=== PATIENT | male | born 1940 | race Caucasian/White ===

== ENCOUNTER → 2017-07-25 | Outpatient (CLI) | payer OTHER ==
[~2017-07-25] MED LIST: ATOR10TA PO; CARB25TA3 PO; TADA5TAB11 PO
[2017-07-25 09:17] LABS: Basophils # (auto) 0.1 uL; Basophils % (auto) 0.7 % (0.0-2.0); Eosinophils # (auto) 0.1 uL; Eosinophils % (auto) 1.3 % (0.0-7.0); Hematocrit 37.2 % (41.0-53.0); Hemoglobin 12.7 g/dL (13.5-17.5); Lymphocytes # (auto) 1.9 uL; Mean Corpuscular Hemoglobin 31.7 pg (28.0-32.0); Mean Corpuscular Hgb Conc. 34.1 g/dL (32.0-36.0); Mean Corpuscular Volume 93.1 fL (80.0-100.0); Monocytes # (auto) 0.5 uL; Neutrophils # (auto) 4.8 uL; Platelet Count (auto) 245 10^3/uL (140-450); White Blood Cell 7.3 10^3/uL (4.4-10.8)
[2017-07-25 09:45] LABS: Urine Bacteria FEW /hpf (None Seen); Urine Blood Negative /uL (Negative); Urine Mucus FEW (None Seen); Urine Specific Gravity 1.016 (1.001-1.035); Urine WBC 5 /hpf (0 - 3)
[2017-07-25 09:49] LABS: Albumin 3.9 g/dL (3.4-5.0); BUN/Creatinine Ratio 17.4; Bilirubin, Total 0.9 mg/dL (0.2-1.0); Calcium 8.7 mg/dL (8.5-10.1); Potassium 3.9 mmol/L (3.5-5.1); Total Protein 7.2 g/dL (6.4-8.2)
== END | disposition home or self-care (01) ==
LOC: LAB 08:59
PROVIDERS: ATTEND Family Medicine
DX: I10 Essential (primary) hypertension (principal); E78.4 Other hyperlipidemia
CPT/HCPCS: 36415; 80053; 80061; 81001; 85025

== ENCOUNTER → 2018-06-26 | Outpatient (CLI) | payer OTHER ==
[2018-06-26 08:44] LABS: Basophils # (auto) 0 uL; Basophils % (auto) 0.7 % (0.0-2.0); Eosinophils # (auto) 0.1 uL; Eosinophils % (auto) 1.7 % (0.0-7.0); Hematocrit 39.5 % (41.0-53.0); Hemoglobin 13.2 g/dL (13.5-17.5); Lymphocytes # (auto) 1.9 uL; Mean Corpuscular Hemoglobin 31.2 pg (28.0-32.0); Mean Corpuscular Hgb Conc. 33.5 g/dL (32.0-36.0); Mean Corpuscular Volume 93.2 fL (80.0-100.0); Monocytes # (auto) 0.4 uL; Monocytes % (auto) 7.5 % (0.0-12.0); Neutrophils # (auto) 3.2 uL; Neutrophils % (auto) 56.1 % (37.0-80.0); Nucleated Red Blood Cells % 0.3 %; Platelet Count (auto) 250 10^3/uL (140-450); Red Blood Cells 4.24 10^6/uL (4.5-5.90); Red Cell Distribution Width 13.8 % (11.8-14.3); White Blood Cell 5.7 10^3/uL (4.4-10.8)
[2018-06-26 08:47] LABS: Urine Bacteria MANY /hpf (None Seen); Urine Blood Negative /uL (Negative); Urine Hyaline Cast FEW /lpf (0 - 2); Urine Mucus FEW (None Seen); Urine Specific Gravity 1.016 (1.001-1.035); Urine WBC 20 /hpf (0 - 3)
[2018-06-30 09:59] LABS: Calcium 8.5 mg/dL (8.5-10.1); Potassium 5.1 mmol/L (3.5-5.1)
[2018-06-30 10:01] LABS: BUN/Creatinine Ratio 17.5
[2018-06-30 10:09] LABS: Total Protein 7.4 g/dL (6.4-8.2)
== END | disposition home or self-care (01) ==
LOC: LAB 08:13
PROVIDERS: ATTEND Family Medicine
DX: E78.49 Other hyperlipidemia (principal); G20 Parkinson's disease; Z79.899 Other long term (current) drug therapy
CPT/HCPCS: 36415; 80053; 80061; 81001; 82306; 84443; 85025

== ENCOUNTER → 2019-06-25 | Outpatient (CLI) | payer OTHER ==
[2019-06-25 11:05] LABS: Basophils # (auto) 0 uL; Eosinophils # (auto) 0.1 uL; Eosinophils % (auto) 1.6 % (0.0-7.0); Hematocrit 36.6 % (41.0-53.0); Hemoglobin 12.4 g/dL (13.5-17.5); Lymphocytes # (auto) 1.5 uL; Lymphocytes % (auto) 29.6 % (10.0-50.0); Mean Corpuscular Hemoglobin 31.6 pg (28.0-32.0); Mean Corpuscular Hgb Conc. 33.9 g/dL (32.0-36.0); Monocytes # (auto) 0.3 uL; Monocytes % (auto) 6.5 % (0.0-12.0); Neutrophils # (auto) 3.1 uL; Neutrophils % (auto) 61.3 % (37.0-80.0); Nucleated Red Blood Cells % 0.1 %; Platelet Count (auto) 226 10^3/uL (140-450); Red Blood Cells 3.94 10^6/uL (4.5-5.90); Red Cell Distribution Width 13.9 % (11.8-14.3); White Blood Cell 5.1 10^3/uL (4.4-10.8)
[2019-06-25 11:29] LABS: Urine Bacteria NONE SEEN /hpf (None Seen); Urine Blood Negative /uL (Negative); Urine Specific Gravity 1.019 (1.001-1.035); Urine WBC 80 /hpf (0 - 3)
[2019-06-25 11:31] LABS: Albumin 3.6 g/dL (3.4-5.0); Calcium 8.5 mg/dL (8.5-10.1); Potassium 3.9 mmol/L (3.5-5.1)
[2019-06-25 11:37] LABS: BUN/Creatinine Ratio 13.7; Bilirubin, Total 0.6 mg/dL (0.2-1.0); Total Protein 6.7 g/dL (6.4-8.2)
== END | disposition home or self-care (01) ==
LOC: LAB 10:32
PROVIDERS: ATTEND Family Medicine
DX: E55.9 Vitamin D deficiency, unspecified (principal); E78.49 Other hyperlipidemia; G20 Parkinson's disease; N40.1 Benign prostatic hyperplasia with lower urinary tract symptoms; Z72.0 Tobacco use
CPT/HCPCS: 36415; 80053; 80061; 81001; 82306; 85025

== ENCOUNTER → 2020-02-15 | Emergency (ER) | payer OTHER ==
[~2020-02-15] VITALS: Ht 167.6 cm; Wt 68.7 kg
[~2020-02-15] MED LIST changes: +CARBIDOPA W LEVODOPA 25/100mg TABLET PO ONE; +KETOROLAC TROMETH 30 MG/ML 1ML VIAL IV ONE; +MORPHINE SULF INJ 2 MG/ML SYRINGE 1ML IV ONE; +ONDANSETRON HCL 4 MG/2 ML VIAL IV ONE; +PANTOPRAZOLE 40 MG/10 ML VIAL INJ IV ONE; +SODIUM CHLORIDE 0.9% 1,000 ML IV ONE; +TAMSULOSIN HYDROCHLORIDE 0.4 MG CAP PO ONE
[2020-02-15 07:29] LABS: Basophils # (auto) 0.1 10 ^3/uL (0-0.2); Basophils % (auto) 1.3 % (0.0-2.0); Eosinophils # (auto) 0.2 10 ^3/uL (0-0.8); Eosinophils % (auto) 2.4 % (0.0-7.0); Hematocrit 38.5 % (41.0-53.0); Hemoglobin 12.8 g/dL (13.5-17.5); Lymphocytes # (auto) 1.9 10 ^3/uL (0.4-5.4); Lymphocytes % (auto) 28.3 % (10.0-50.0); Mean Corpuscular Hemoglobin 31.1 pg (28.0-32.0); Mean Corpuscular Hgb Conc. 33.3 g/dL (32.0-36.0); Mean Corpuscular Volume 93.4 fL (80.0-100.0); Monocytes # (auto) 0.6 10 ^3/uL (0-1.3); Monocytes % (auto) 8.5 % (0.0-12.0); Neutrophils # (auto) 3.9 10 ^3/uL (1.6-8.6); Neutrophils % (auto) 59.5 % (37.0-80.0); Platelet Count (auto) 276 10^3/uL (140-450); Red Blood Cells 4.12 10^6/uL (4.5-5.90); Red Cell Distribution Width 14.3 % (11.8-14.3); White Blood Cell 6.6 10^3/uL (4.4-10.8)
[2020-02-15 07:32] VITALS: BP 134/65
[2020-02-15 07:50] LABS: Alanine Aminotransferase 16 U/L (16-61); Albumin 3.6 g/dL (3.4-5.0); Anion Gap 5 (5-15); Aspartate Aminotransferase 17 U/L (15-37); BUN/Creatinine Ratio 19.5; Blood Urea Nitrogen 24 mg/dL (7-18); Calcium 8.5 mg/dL (8.5-10.1); Carbon Dioxide 23 mmol/L (21-32); Chloride 112 mmol/L (98-107); GFR African American 73 mL/min; GFR Non-African American 60 mL/min; Glucose 114 mg/dL (74-106); Lipase 115 U/L (73-393); Potassium 3.8 mmol/L (3.5-5.1); Sodium 140 mmol/L (136-145)
[2020-02-15 07:55] LABS: Alkaline Phosphatase 73 U/L (45-117); Bilirubin, Total 0.6 mg/dL (0.2-1.0); Total Protein 7.1 g/dL (6.4-8.2)
== END | disposition home or self-care (01) ==
LOC: ER 06:50
DX: N20.0 Calculus of kidney (principal); E86.0 Dehydration; K59.00 Constipation, unspecified; K44.9 Diaphragmatic hernia without obstruction or gangrene; K57.90 Diverticulosis of intestine, part unspecified, without perforation or abscess without bleeding; N40.0 Benign prostatic hyperplasia without lower urinary tract symptoms; F17.210 Nicotine dependence, cigarettes, uncomplicated; E78.5 Hyperlipidemia, unspecified; Z88.0 Allergy status to penicillin; Z88.5 Allergy status to narcotic agent; Z79.899 Other long term (current) drug therapy
CPT/HCPCS: 36415; 71045; 74176; 80053; 83690; 84154; 84484; 85025; 93005; 96361; 96374; 96375; 99285; C9113; J1885

== ENCOUNTER → 2020-04-12 | Outpatient (CLI) | payer OTHER ==
[~2020-04-12] MED LIST changes: -CARBIDOPA W LEVODOPA 25/100mg TABLET PO ONE; +FURO20TA3 PO; -KETOROLAC TROMETH 30 MG/ML 1ML VIAL IV ONE; -MORPHINE SULF INJ 2 MG/ML SYRINGE 1ML IV ONE; -ONDANSETRON HCL 4 MG/2 ML VIAL IV ONE; -PANTOPRAZOLE 40 MG/10 ML VIAL INJ IV ONE; +POTA1TAB61 PO; +RASA1TAB PO; -SODIUM CHLORIDE 0.9% 1,000 ML IV ONE; -TAMSULOSIN HYDROCHLORIDE 0.4 MG CAP PO ONE
== END | disposition home or self-care (01) ==
LOC: XYW 10:53
PROVIDERS: ATTEND Internal Medicine
DX: I08.3 Combined rheumatic disorders of mitral, aortic and tricuspid valves (principal); E78.5 Hyperlipidemia, unspecified
CPT/HCPCS: 93306

== ENCOUNTER → 2020-05-16 | Outpatient (CLI) | payer OTHER ==
[~2020-05-16] VITALS: Ht 167.6 cm; Wt 68.0 kg
[~2020-05-16] MED LIST changes: +ADENOSINE 57 MG in GIVE UN-DILUTED 0 ML IV STA; -FURO20TA3 PO; -POTA1TAB61 PO; -RASA1TAB PO
[2020-05-16 09:32] VITALS: BP 105/58
== END | disposition home or self-care (01) ==
LOC: XY 07:50
PROVIDERS: ATTEND Internal Medicine
DX: Z01.810 Encounter for preprocedural cardiovascular examination (principal)
CPT/HCPCS: 78452; 93017; A9500; J0153

== ENCOUNTER → 2020-06-08 | Outpatient (CLI) | payer OTHER ==
[~2020-06-08] MED LIST changes: -ADENOSINE 57 MG in GIVE UN-DILUTED 0 ML IV STA; +FURO20TA3 PO; +POTA1TAB61 PO; +RASA1TAB PO
[2020-06-08 09:52] LABS: Basophils # (auto) 0 10 ^3/uL (0-0.2); Basophils % (auto) 0.7 % (0.0-2.0); Eosinophils # (auto) 0.1 10 ^3/uL (0-0.8); Eosinophils % (auto) 1.6 % (0.0-7.0); Hematocrit 37.7 % (41.0-53.0); Hemoglobin 12.4 g/dL (13.5-17.5); Lymphocytes # (auto) 1.6 10 ^3/uL (0.4-5.4); Lymphocytes % (auto) 24.6 % (10.0-50.0); Mean Corpuscular Hemoglobin 30.6 pg (28.0-32.0); Mean Corpuscular Hgb Conc. 32.8 g/dL (32.0-36.0); Mean Corpuscular Volume 93.4 fL (80.0-100.0); Monocytes # (auto) 0.5 10 ^3/uL (0-1.3); Monocytes % (auto) 8.1 % (0.0-12.0); Neutrophils # (auto) 4.2 10 ^3/uL (1.6-8.6); Platelet Count (auto) 252 10^3/uL (140-450); Red Blood Cells 4.04 10^6/uL (4.5-5.90); Red Cell Distribution Width 14.2 % (11.8-14.3); White Blood Cell 6.5 10^3/uL (4.4-10.8)
[2020-06-08 10:24] LABS: INR 0.99 (0.9-1.15); Partial Thromboplastin Time 26.8 sec (23.0-31.2)
[2020-06-08 11:08] LABS: Albumin 3.9 g/dL (3.4-5.0); Calcium 9.1 mg/dL (8.5-10.1)
[2020-06-08 11:10] LABS: BUN/Creatinine Ratio 25.4
[2020-06-08 11:14] LABS: Bilirubin, Total 0.7 mg/dL (0.2-1.0)
== END | disposition home or self-care (01) ==
LOC: LAB 09:39
PROVIDERS: ATTEND Internal Medicine
DX: Z01.812 Encounter for preprocedural laboratory examination (principal); I10 Essential (primary) hypertension; D64.9 Anemia, unspecified; R79.1 Abnormal coagulation profile
CPT/HCPCS: 36415; 80053; 85025; 85610; 85730

== ENCOUNTER 2020-06-14 06:52 | Inpatient (IN) | payer OTHER ==
[~2020-06-14] VITALS: Ht 167.6 cm; Wt 70.9 kg
[~2020-06-14 06:52] MED LIST changes: -FURO20TA3 PO; -POTA1TAB61 PO; -TADA5TAB11 PO
[2020-06-14] MEDS ORDERED: VANCOMYCIN 1GM/250ML 250 ML IV ONE (09:15)
[2020-06-14] MEDS ORDERED: LIDOCAINE 2%HCL (LOCAL ANESTH.) INJ 20ML MDV ONE (09:24)
[2020-06-14] MEDS ORDERED: VANCOMYCIN HCL 1000 MG VL ONE (10:17)
[2020-06-14] MEDS ORDERED: MIDAZOLAM HCL 1MG/1ML-2 ML VIAL ONE (10:17)
[2020-06-14] MEDS ORDERED: fentaNYL CITRATE 100 MCG/2 ML VL ONE (10:17)
[2020-06-14] MEDS ORDERED: HYDROcodone-ACET 5/325MG TAB PO PRN (12:00)
[2020-06-14] MEDS ORDERED: MORPHINE SULF INJ 2 MG/ML SYRINGE 1ML IV PRN (12:00)
[2020-06-14] MEDS ORDERED: NITROGLYCERIN 0.4 MG SL TAB SL PRN (12:00)
[2020-06-14] MEDS ORDERED: KETOROLAC TROMETH 30 MG/ML 1ML VIAL IV PRN (13:00)
--- NOTE | 2020-06-14 13:00 | NUR ---
Telemetry admit from [employer] [employer] FREDI NAVARRO admitted to Telemetry unit after SBAR received. Patient oriented to Kylie Karimi RN primary RN, unit, room, bed, and unit policies regarding patient care and visiting hours. Patient now on continuous telemetry monitoring, tele box #[id number] and telemetry reading on arrival to unit is sr. Encouraged to call if they need something. All questions and concerns addressed, patient verbalized understanding. Noted left arm to be immobilized with sling. S/p pacemaker insertion with Dr. Grant. Ice pack placed on left upper chest to decrease inflammation. Patient is aware of restrictions. Bed is low, locked with 2x side rails up. Call light is within reach. Will continue to monitor Q1hr and PRN.
[2020-06-14 13:51] VITALS: BP 146/76
[2020-06-14] MEDS: ACETAMINOPHEN 325 MG TAB PO PRN ×2 (15:55→23:03)
[2020-06-14] MEDS: CARBIDOPA W LEVODOPA 25/100mg TABLET PO SCH ×3 (15:55→21:21)
[2020-06-14 16:24] VITALS: BP 128/69
--- NOTE | 2020-06-14 17:03 | NUR ---
Code status Noted copy of POLST form in hard chart. Discussed code status with patient and patient stated that he would like to remain DNR (see POLST form in hard chart). Dr. Grant aware of patient's POLST form. New orders received to change code status. DNR form in chart for MD signature. Will continue to monitor Q1hr and PRN.
--- NOTE | 2020-06-14 19:05 | NUR ---
OPENING SHIFT NOTE: Assumed care of patient. Patient awake, alert and oriented x 4. No s/s of distress and patient denies pain. Bed in lowest locked position with two side rails raised and call [place] within reach. Instructed on POC and encouraged to call for assistance, all questions and concerns addressed, patient verbalizes understanding. Will continue to monitor Q1 hr and PRN.
[2020-06-14 20:00] VITALS: BP 130/76
[2020-06-14 22:00] VITALS: BP 130/76
[2020-06-14] MEDS ORDERED: ATORVASTATIN 20 MG TAB PO SCH (22:00)
[2020-06-15 05:00] VITALS: BP 125/70
[2020-06-15] MEDS: CARBIDOPA W LEVODOPA 25/100mg TABLET PO SCH ×2 (06:24→13:09)
[2020-06-15 09:00] VITALS: BP 138/74
[2020-06-15] MEDS ORDERED: FURO20TA3 PO (12:02)
[2020-06-15] MEDS ORDERED: POTA1TAB61 PO (12:02)
[2020-06-15 13:00] VITALS: BP 148/76
[2020-06-15] MEDS: ACETAMINOPHEN 325 MG TAB PO PRN (13:09)
== END 2020-06-15 13:50 | disposition home or self-care (01) | DRG 242 ==
LOC: CATH 06:52 → TELE-CENTR 06:53
PROVIDERS: ADMIT Internal Medicine; ATTEND Internal Medicine
PROC: 0JH606Z Insertion of Pacemaker, Dual Chamber into Chest Subcutaneous Tissue and Fascia, Open Approach (ICD-10-PCS; principal; 2020-06-14)
PROC: 02HK3JZ Insertion of Pacemaker Lead into Right Ventricle, Percutaneous Approach (ICD-10-PCS; 2020-06-14)
PROC: 02H63JZ Insertion of Pacemaker Lead into Right Atrium, Percutaneous Approach (ICD-10-PCS; 2020-06-14)
DX: I49.5 Sick sinus syndrome (principal); I50.33 Acute on chronic diastolic (congestive) heart failure; F17.210 Nicotine dependence, cigarettes, uncomplicated; Z20.828 Contact with and (suspected) exposure to other viral communicable diseases; G20 Parkinson's disease; Z82.0 Family history of epilepsy and other diseases of the nervous system; Z88.5 Allergy status to narcotic agent; Z88.0 Allergy status to penicillin
CPT/HCPCS: 33208; 71045; 93005; 99152; 99153; C1785; G0378; J2250

== ENCOUNTER → 2020-10-23 | Outpatient (CLI) | payer OTHER ==
[~2020-10-23] MED LIST changes: +FURO20TA3 PO; +POTA1TAB61 PO
[2020-10-23 12:30] LABS: Potassium 4.1 mmol/L (3.5-5.1)
[2020-10-23 12:39] LABS: Calcium 8.7 mg/dL (8.5-10.1)
== END | disposition home or self-care (01) ==
LOC: LAB 11:15
PROVIDERS: ATTEND Internal Medicine
DX: C61 Malignant neoplasm of prostate (principal)
CPT/HCPCS: 36415; 80048

== ENCOUNTER 2020-11-29 13:45 | Emergency (ER) | payer OTHER ==
[~2020-11-29] VITALS: Ht 167.6 cm; Wt 68.5 kg
[2020-11-29 13:47] VITALS: BP 117/63
[2020-11-29 14:49] LABS: Basophils # (auto) 0 10 ^3/uL (0-0.2); Basophils % (auto) 0.6 % (0.0-2.0); Eosinophils # (auto) 0.2 10 ^3/uL (0-0.8); Eosinophils % (auto) 2.3 % (0.0-7.0); Hematocrit 34.7 % (41.0-53.0); Hemoglobin 12.1 g/dL (13.5-17.5); Lymphocytes % (auto) 28.4 % (10.0-50.0); Mean Corpuscular Hemoglobin 31.6 pg (28.0-32.0); Mean Corpuscular Hgb Conc. 34.7 g/dL (32.0-36.0); Mean Corpuscular Volume 90.9 fL (80.0-100.0); Monocytes # (auto) 0.6 10 ^3/uL (0-1.3); Monocytes % (auto) 9.1 % (0.0-12.0); Neutrophils # (auto) 4.2 10 ^3/uL (1.6-8.6); Neutrophils % (auto) 59.6 % (37.0-80.0); Platelet Count (auto) 193 10^3/uL (140-450); Red Blood Cells 3.82 10^6/uL (4.5-5.90); Red Cell Distribution Width 13.6 % (11.8-14.3)
[2020-11-29 14:57] LABS: Albumin 3.8 g/dL (3.4-5.0); Calcium 8.7 mg/dL (8.5-10.1); Potassium 3.7 mmol/L (3.5-5.1)
[2020-11-29 15:00] LABS: BUN/Creatinine Ratio 19.4; Bilirubin, Total 0.6 mg/dL (0.2-1.0)
== END 2020-11-29 16:03 | disposition home or self-care (01) ==
LOC: ER 13:45
DX: S09.93XA Unspecified injury of face, initial encounter (principal); S00.33XA Contusion of nose, initial encounter; S00.31XA Abrasion of nose, initial encounter; F17.210 Nicotine dependence, cigarettes, uncomplicated; E78.5 Hyperlipidemia, unspecified; Z79.899 Other long term (current) drug therapy; W19.XXXA Unspecified fall, initial encounter; Y93.89 Activity, other specified; Y92.89 Other specified places as the place of occurrence of the external cause; Y99.8 Other external cause status
CPT/HCPCS: 36415; 70450; 70486; 71046; 72125; 80053; 85025

== ENCOUNTER 2021-03-27 10:04 | Inpatient (IN) | payer OTHER ==
[~2021-03-27] VITALS: Ht 167.6 cm; Wt 72.9 kg
[~2021-03-27 10:04] MED LIST changes: +BICA50TA13 PO; +CARB-80 PO; -CARB25TA3 PO; +CHOL20007; +ENTA200T4 OR; +FERR27TA2 PO
[2021-03-27] MEDS ORDERED: PANTOPRAZOLE 40 MG/10 ML VIAL INJ IV ONE (10:30)
[2021-03-27] MEDS ORDERED: LORazepam 2MG/ML-1ML VIAL IV ONE (10:30)
[2021-03-27 10:50] LABS: Basophils # (auto) 0 10 ^3/uL (0-0.2); Basophils % (auto) 0.8 % (0.0-2.0); Eosinophils # (auto) 0.1 10 ^3/uL (0-0.8); Eosinophils % (auto) 2.3 % (0.0-7.0); Hematocrit 26.6 % (41.0-53.0); Hemoglobin 9.6 g/dL (13.5-17.5); Lymphocytes # (auto) 0.7 10 ^3/uL (0.4-5.4); Lymphocytes % (auto) 11.5 % (10.0-50.0); Mean Corpuscular Hemoglobin 33.2 pg (28.0-32.0); Mean Corpuscular Volume 92.4 fL (80.0-100.0); Monocytes # (auto) 0.7 10 ^3/uL (0-1.3); Monocytes % (auto) 11.4 % (0.0-12.0); Neutrophils # (auto) 4.5 10 ^3/uL (1.6-8.6); Platelet Count (auto) 222 10^3/uL (140-450); Red Blood Cells 2.88 10^6/uL (4.5-5.90); Red Cell Distribution Width 13.9 % (11.8-14.3); White Blood Cell 6.1 10^3/uL (4.4-10.8)
[2021-03-27 11:00] LABS: Albumin 3.4 g/dL (3.4-5.0); Anion Gap 7 (5-15); Blood Urea Nitrogen 21 mg/dL (7-18); Calcium 8.7 mg/dL (8.5-10.1); Carbon Dioxide 23 mmol/L (21-32); Chloride 109 mmol/L (98-107); Glucose 103 mg/dL (74-106); Potassium 3.6 mmol/L (3.5-5.1); Sodium 139 mmol/L (136-145)
[2021-03-27 11:09] LABS: Alanine Aminotransferase 9 U/L (16-61); Alkaline Phosphatase 70 U/L (45-117); Aspartate Aminotransferase 18 U/L (15-37); BUN/Creatinine Ratio 13.4; Bilirubin, Total 1.2 mg/dL (0.2-1.0); GFR African American 55 mL/min; GFR Non-African American 46 mL/min; Total Protein 6.5 g/dL (6.4-8.2)
[2021-03-27] MEDS ORDERED: MORPHINE SULF INJ 2 MG/ML SYRINGE 1ML IV PRN (12:30)
[2021-03-27] MEDS ORDERED: NITROGLYCERIN 0.4 MG SL TAB SL PRN (12:30)
[2021-03-27] MEDS: SODIUM CHLORIDE 0.9% 1,000 ML IV SCH (13:02)
[2021-03-27 13:40] LABS: Urine Bacteria FEW /hpf (None Seen); Urine Blood 2+ /uL (Negative); Urine Specific Gravity 1.008 (1.001-1.035); Urine WBC 124 /hpf (0 - 3)
[2021-03-27] MEDS: SUCRALFATE 1 GM/10 ML ORAL SUSP PO SCH ×2 (17:11→21:03)
[2021-03-27] MEDS ORDERED: GOLYTELY 4L KIT PO ONE (17:30)
[2021-03-27 18:00] VITALS: BP 117/57
[2021-03-27] MEDS: ENTACAPONE 200 MG PO SCH ×2 (19:00→21:04)
[2021-03-27] MEDS: CARBIDOPA W LEVODOPA 25/100mg TABLET PO SCH ×2 (19:00→21:04)
[2021-03-27 19:28] LABS: INR 1.03 (0.9-1.15)
[2021-03-27] MEDS: PANTOPRAZOLE 40 MG TAB PO SCH (21:03)
[2021-03-27] MEDS: ATORVASTATIN 20 MG TAB PO SCH (21:03)
[2021-03-27 22:00] VITALS: BP 104/50
[2021-03-28] MEDS: SODIUM CHLORIDE 0.9% 1,000 ML IV SCH ×3 (01:56→17:18)
[2021-03-28 05:00] VITALS: BP 128/64
[2021-03-28] MEDS: ENTACAPONE 200 MG PO SCH ×4 (05:23→21:26)
[2021-03-28] MEDS: CARBIDOPA W LEVODOPA 25/100mg TABLET PO SCH ×4 (05:23→21:27)
[2021-03-28] MEDS: SUCRALFATE 1 GM/10 ML ORAL SUSP PO SCH ×4 (05:23→21:26)
[2021-03-28 06:34] LABS: Basophils # (auto) 0.1 10 ^3/uL (0-0.2); Eosinophils # (auto) 0.2 10 ^3/uL (0-0.8); Eosinophils % (auto) 3.7 % (0.0-7.0); Hematocrit 29.5 % (41.0-53.0); Hemoglobin 10.4 g/dL (13.5-17.5); Lymphocytes # (auto) 0.8 10 ^3/uL (0.4-5.4); Lymphocytes % (auto) 14.8 % (10.0-50.0); Mean Corpuscular Hemoglobin 32.9 pg (28.0-32.0); Mean Corpuscular Hgb Conc. 35.4 g/dL (32.0-36.0); Monocytes # (auto) 0.5 10 ^3/uL (0-1.3); Monocytes % (auto) 10.4 % (0.0-12.0); Neutrophils # (auto) 3.6 10 ^3/uL (1.6-8.6); Neutrophils % (auto) 70.1 % (37.0-80.0); Nucleated Red Blood Cells % 0.1 %; Platelet Count (auto) 233 10^3/uL (140-450); Red Blood Cells 3.17 10^6/uL (4.5-5.90); Red Cell Distribution Width 13.6 % (11.8-14.3); White Blood Cell 5.2 10^3/uL (4.4-10.8)
[2021-03-28 06:53] LABS: Albumin 3.3 g/dL (3.4-5.0); Calcium 8.5 mg/dL (8.5-10.1); Potassium 3.7 mmol/L (3.5-5.1)
[2021-03-28 06:57] LABS: BUN/Creatinine Ratio 13.4; Total Protein 6.5 g/dL (6.4-8.2)
[2021-03-28] MEDS ORDERED: diphenhdrAMINE HCL 50 MG/1 ML VL ONE ×2 (07:53→07:57)
[2021-03-28] MEDS ORDERED: LIDOCAINE VISCOUS 2% 15ML UD ONE (07:53)
[2021-03-28] MEDS ORDERED: SODIUM CHLORIDE LOCK 10 ML ONE (07:53)
[2021-03-28 08:30] VITALS: BP 120/76
[2021-03-28] MEDS: POTASSIUM CHL 10 Meq TABLET PO SCH (09:57)
[2021-03-28] MEDS: PANTOPRAZOLE 40 MG TAB PO SCH ×2 (09:58→21:26)
[2021-03-28] MEDS: FLORASTOR (S. BOULARDII) 250 MG CAP PO SCH (09:58)
[2021-03-28] MEDS: CHOLECALCIFEROL (VITD3) 1,000UNIT=25mCg TAB PO SCH (09:58)
[2021-03-28] MEDS ORDERED: PANTOPRAZOLE 40 MG TAB PO SCH (10:00)
[2021-03-28] MEDS ORDERED: Bicalutamide 50 MG TAB PO SCH (10:00)
[2021-03-28] MEDS ORDERED: PATIENTS OWN MEDICATION (Atorvastatin Calcium (Lipitor) 1 TAB) PO SCH (10:00)
[2021-03-28] MEDS ORDERED: PATIENTS OWN MEDICATION (Cholecalciferol (Vitamin D3) 1,000 UNIT) SCH (10:00)
[2021-03-28] MEDS ORDERED: PATIENTS OWN MEDICATION (Potassium Chloride (Klor-Con M10) 1 TAB) PO SCH (10:00)
[2021-03-28] MEDS ORDERED: levoFLOXacin 500MG 100 ML IV ONE (10:30)
[2021-03-28 13:00] VITALS: BP 133/74
[2021-03-28] MEDS: FERROUS GLUCONATE PO SCH (14:24)
[2021-03-28 17:15] VITALS: BP 136/70
[2021-03-28] MEDS: BICALUTAMIDE 50 MG TAB PO SCH (18:24)
[2021-03-28] MEDS: ATORVASTATIN 20 MG TAB PO SCH (21:26)
[2021-03-28 21:47] VITALS: BP 106/63
[2021-03-29 05:00] VITALS: BP 152/69
[2021-03-29] MEDS: ENTACAPONE 200 MG PO SCH ×4 (05:44→22:00)
[2021-03-29] MEDS: CARBIDOPA W LEVODOPA 25/100mg TABLET PO SCH ×4 (05:44→22:00)
[2021-03-29] MEDS: SUCRALFATE 1 GM/10 ML ORAL SUSP PO SCH ×4 (05:45→22:00)
[2021-03-29] MEDS ORDERED: MIDAZOLAM HCL 5 MG/ML-1ML VIAL ONE (08:44)
[2021-03-29] MEDS ORDERED: diphenhdrAMINE HCL 50 MG/1 ML VL ONE (08:44)
[2021-03-29] MEDS ORDERED: LIDOCAINE VISCOUS 2% 15ML UD ONE (08:44)
[2021-03-29 09:00] VITALS: BP 128/77
[2021-03-29] MEDS: fentaNYL CITRATE 100 MCG/2 ML VL ONE ×2 (09:33→09:40)
[2021-03-29] MEDS: BICALUTAMIDE 50 MG TAB PO SCH (10:00)
[2021-03-29] MEDS ORDERED: GOLYTELY 4L KIT PO ONE (10:00)
[2021-03-29] MEDS: FERROUS GLUCONATE PO SCH (10:00)
[2021-03-29] MEDS: levoFLOXacin 250MG 50 ML IV SCH (10:00)
[2021-03-29] MEDS: POTASSIUM CHL 10 Meq TABLET PO SCH (10:00)
[2021-03-29] MEDS: CHOLECALCIFEROL (VITD3) 1,000UNIT=25mCg TAB PO SCH (10:00)
[2021-03-29] MEDS ORDERED: levoFLOXacin 500MG 100 ML IV SCH (10:00)
[2021-03-29] MEDS: PANTOPRAZOLE 40 MG TAB PO SCH ×2 (10:00→22:00)
[2021-03-29] MEDS: FLORASTOR (S. BOULARDII) 250 MG CAP PO SCH (10:00)
[2021-03-29 13:00] VITALS: BP 156/82
[2021-03-29] MEDS: SODIUM CHLORIDE 0.9% 1,000 ML IV SCH (17:23)
[2021-03-29 17:35] VITALS: BP 147/69
[2021-03-29 22:00] VITALS: BP 156/60
[2021-03-29] MEDS: ATORVASTATIN 20 MG TAB PO SCH (22:00)
[2021-03-30 05:00] VITALS: BP 137/50
[2021-03-30] MEDS: ENTACAPONE 200 MG PO SCH (06:00)
[2021-03-30] MEDS: CARBIDOPA W LEVODOPA 25/100mg TABLET PO SCH ×2 (06:00→12:00)
[2021-03-30] MEDS: SUCRALFATE 1 GM/10 ML ORAL SUSP PO SCH ×2 (07:00→11:30)
[2021-03-30] MEDS: SODIUM CHLORIDE 0.9% 1,000 ML IV SCH (07:10)
[2021-03-30] MEDS ORDERED: EPINEPHrine HCL 1 MG/10 ML SYRG ONE (08:38)
[2021-03-30] MEDS ORDERED: fentaNYL CITRATE 100 MCG/2 ML VL ONE (08:38)
[2021-03-30] MEDS ORDERED: MIDAZOLAM HCL 5 MG/ML-1ML VIAL ONE (08:38)
[2021-03-30] MEDS ORDERED: diphenhdrAMINE HCL 50 MG/1 ML VL ONE (08:38)
[2021-03-30 09:00] VITALS: BP 144/67
[2021-03-30] MEDS: MIDAZOLAM HCL 5 MG/ML-1ML VIAL ONE ×3 (09:19→09:29)
[2021-03-30] MEDS: fentaNYL CITRATE 100 MCG/2 ML VL ONE ×3 (09:19→09:29)
[2021-03-30] MEDS: CHOLECALCIFEROL (VITD3) 1,000UNIT=25mCg TAB PO SCH (10:00)
[2021-03-30] MEDS: BICALUTAMIDE 50 MG TAB PO SCH (10:00)
[2021-03-30] MEDS: PANTOPRAZOLE 40 MG TAB PO SCH (10:00)
[2021-03-30] MEDS: FLORASTOR (S. BOULARDII) 250 MG CAP PO SCH (10:00)
[2021-03-30] MEDS: POTASSIUM CHL 10 Meq TABLET PO SCH (10:00)
[2021-03-30] MEDS: FERROUS GLUCONATE PO SCH (10:00)
[2021-03-30] MEDS: levoFLOXacin 250MG 50 ML IV SCH (11:00)
[2021-03-30 12:23] LABS: Basophils # (auto) 0.1 10 ^3/uL (0-0.2); Eosinophils # (auto) 0.1 10 ^3/uL (0-0.8); Hematocrit 32.5 % (41.0-53.0); Hemoglobin 11.4 g/dL (13.5-17.5); Lymphocytes # (auto) 1.1 10 ^3/uL (0.4-5.4); Lymphocytes % (auto) 21.4 % (10.0-50.0); Mean Corpuscular Hemoglobin 32.3 pg (28.0-32.0); Mean Corpuscular Hgb Conc. 35.1 g/dL (32.0-36.0); Mean Corpuscular Volume 92.1 fL (80.0-100.0); Monocytes # (auto) 0.4 10 ^3/uL (0-1.3); Monocytes % (auto) 8.5 % (0.0-12.0); Neutrophils # (auto) 3.5 10 ^3/uL (1.6-8.6); Neutrophils % (auto) 67.1 % (37.0-80.0); Nucleated Red Blood Cells % 0.1 %; Platelet Count (auto) 269 10^3/uL (140-450); Red Blood Cells 3.53 10^6/uL (4.5-5.90); Red Cell Distribution Width 13.7 % (11.8-14.3); White Blood Cell 5.2 10^3/uL (4.4-10.8)
[2021-03-30 12:50] VITALS: BP 145/71
[2021-03-30 14:03] VITALS: BP 145/71
[2021-03-30 16:40] VITALS: BP 105/58
== END 2021-03-30 16:45 | disposition home or self-care (01) | DRG 377 ==
LOC: ER 10:04 → OVERFLOW 12:30 → WEST WING 17:46
PROVIDERS: ADMIT Nurse Practitioner Acute Care; ATTEND Family Medicine
PROC: 0DJ08ZZ Inspection of Upper Intestinal Tract, Via Natural or Artificial Opening Endoscopic (ICD-10-PCS; 2021-03-29)
PROC: 0DJD8ZZ Inspection of Lower Intestinal Tract, Via Natural or Artificial Opening Endoscopic (ICD-10-PCS; 2021-03-29 09:20)
PROC: 0DJD8ZZ Inspection of Lower Intestinal Tract, Via Natural or Artificial Opening Endoscopic (ICD-10-PCS; principal; 2021-03-30 09:15)
DX: K29.71 Gastritis, unspecified, with bleeding (principal); N17.0 Acute kidney failure with tubular necrosis; N39.0 Urinary tract infection, site not specified; K64.8 Other hemorrhoids; K57.91 Diverticulosis of intestine, part unspecified, without perforation or abscess with bleeding; R19.7 Diarrhea, unspecified; G20 Parkinson's disease; K44.9 Diaphragmatic hernia without obstruction or gangrene; D50.0 Iron deficiency anemia secondary to blood loss (chronic); E78.5 Hyperlipidemia, unspecified; Z20.822 Contact with and (suspected) exposure to COVID-19; E78.00 Pure hypercholesterolemia, unspecified; F17.210 Nicotine dependence, cigarettes, uncomplicated; I10 Essential (primary) hypertension; R32 Unspecified urinary incontinence; N40.1 Benign prostatic hyperplasia with lower urinary tract symptoms; R33.8 Other retention of urine; I25.10 Atherosclerotic heart disease of native coronary artery without angina pectoris; Z82.0 Family history of epilepsy and other diseases of the nervous system; Z88.5 Allergy status to narcotic agent; Z88.0 Allergy status to penicillin; Z85.46 Personal history of malignant neoplasm of prostate; Z92.3 Personal history of irradiation; Z95.0 Presence of cardiac pacemaker
CPT/HCPCS: 36415; 71045; 80053; 81001; 83880; 84154; 84484; 85025; 85049; 85610; 86850; 86900; 86901; 87086; 87426; 93306; 96361; 96374; C9113; G0378; J1956; J2250

== ENCOUNTER 2021-06-25 11:06 | Emergency (ER) | payer OTHER ==
[~2021-06-25] VITALS: Ht 167.6 cm; Wt 64.4 kg
[2021-06-25 12:50] LABS: Basophils # (auto) 0 10 ^3/uL (0-0.2); Basophils % (auto) 0.7 % (0.0-2.0); Eosinophils # (auto) 0.1 10 ^3/uL (0-0.8); Eosinophils % (auto) 0.9 % (0.0-7.0); Hematocrit 29.7 % (41.0-53.0); Hemoglobin 10.1 g/dL (13.5-17.5); Lymphocytes # (auto) 0.8 10 ^3/uL (0.4-5.4); Lymphocytes % (auto) 12.5 % (10.0-50.0); Mean Corpuscular Hemoglobin 31.6 pg (28.0-32.0); Mean Corpuscular Volume 92.9 fL (80.0-100.0); Monocytes # (auto) 0.4 10 ^3/uL (0-1.3); Monocytes % (auto) 6.7 % (0.0-12.0); Neutrophils # (auto) 5.1 10 ^3/uL (1.6-8.6); Neutrophils % (auto) 79.2 % (37.0-80.0); Red Cell Distribution Width 15.1 % (11.8-14.3); White Blood Cell 6.4 10^3/uL (4.4-10.8)
[2021-06-25 12:54] VITALS: BP 116/54
[2021-06-25 13:06] LABS: Albumin 3.5 g/dL (3.4-5.0); Anion Gap 5 (5-15); Blood Urea Nitrogen 29 mg/dL (7-18); Calcium 8.7 mg/dL (8.5-10.1); Carbon Dioxide 24 mmol/L (21-32); Chloride 113 mmol/L (98-107); Glucose 125 mg/dL (74-106); Sodium 142 mmol/L (136-145)
[2021-06-25 13:11] LABS: Alanine Aminotransferase 9 U/L (16-61); Alkaline Phosphatase 89 U/L (45-117); Aspartate Aminotransferase 12 U/L (15-37); BUN/Creatinine Ratio 20.1; Bilirubin, Total 0.5 mg/dL (0.2-1.0); GFR African American 61 mL/min; GFR Non-African American 50 mL/min
== END 2021-06-25 14:38 | disposition home or self-care (01) ==
LOC: ER 11:06
DX: S40.011A Contusion of right shoulder, initial encounter (principal); R53.1 Weakness; G20 Parkinson's disease; R51.9 Headache, unspecified; F17.210 Nicotine dependence, cigarettes, uncomplicated; I25.10 Atherosclerotic heart disease of native coronary artery without angina pectoris; E78.5 Hyperlipidemia, unspecified; Z88.5 Allergy status to narcotic agent; Z88.0 Allergy status to penicillin; Z79.899 Other long term (current) drug therapy; Z95.0 Presence of cardiac pacemaker; W18.39XA Other fall on same level, initial encounter; Y93.89 Activity, other specified; Y92.89 Other specified places as the place of occurrence of the external cause; Y99.8 Other external cause status
CPT/HCPCS: 36415; 70450; 73030; 73070; 73100; 80053; 84484; 85025; 93005

== ENCOUNTER → 2021-06-28 | Outpatient (CLI) | payer OTHER | END | disposition home or self-care (01) | LOC: LAB 11:15 | DX: C61 Malignant neoplasm of prostate (principal) | CPT/HCPCS: 84153 ==

== ENCOUNTER 2022-01-09 13:19 | Inpatient (IN) | payer OTHER ==
[~2022-01-09] VITALS: Ht 157.5 cm; Wt 64.2 kg
[~2022-01-09 13:19] MED LIST changes: -ENTA200T4 OR; +ENTA200T4 PO
[2022-01-09 14:06] LABS: Basophils # (auto) 0 10 ^3/uL (0-0.2); Basophils % (auto) 0.6 % (0.0-2.0); Eosinophils # (auto) 0.1 10 ^3/uL (0-0.8); Eosinophils % (auto) 1.5 % (0.0-7.0); Hematocrit 25.3 % (41.0-53.0); Hemoglobin 8.8 g/dL (13.5-17.5); Lymphocytes % (auto) 21.4 % (10.0-50.0); Mean Corpuscular Hemoglobin 33.2 pg (28.0-32.0); Mean Corpuscular Hgb Conc. 34.8 g/dL (32.0-36.0); Mean Corpuscular Volume 95.5 fL (80.0-100.0); Monocytes # (auto) 0.5 10 ^3/uL (0-1.3); Monocytes % (auto) 10.6 % (0.0-12.0); Neutrophils # (auto) 2.9 10 ^3/uL (1.6-8.6); Neutrophils % (auto) 65.9 % (37.0-80.0); Nucleated Red Blood Cells % 0.1 %; Red Blood Cells 2.64 10^6/uL (4.5-5.90); White Blood Cell 4.4 10^3/uL (4.4-10.8)
[2022-01-09 14:21] LABS: INR 1.05 (0.9-1.15); Partial Thromboplastin Time 26.6 sec (23.6-33.0)
[2022-01-09 14:45] LABS: Albumin 3.7 g/dL (3.4-5.0); Calcium 8.6 mg/dL (8.5-10.1); Potassium 3.4 mmol/L (3.5-5.1)
[2022-01-09 14:48] LABS: BUN/Creatinine Ratio 15.5; Bilirubin, Total 0.6 mg/dL (0.2-1.0); Total Protein 6.5 g/dL (6.4-8.2)
[2022-01-09 16:12] LABS: Urine Bacteria MOD /hpf (None Seen); Urine Blood Negative /uL (Negative); Urine WBC 3 /hpf (0 - 3)
[2022-01-09] MEDS ORDERED: ONDANSETRON HCL 4 MG/2 ML VIAL IV ONE (16:30)
[2022-01-09] MEDS ORDERED: MORPHINE SULFATE 4 MG/ML SYR/VIAL IV ONE ×2 (16:30→17:30)
[2022-01-09] MEDS ORDERED: oxyCODONE HCL 5MG TAB PO PRN (18:00)
[2022-01-09] MEDS ORDERED: DOCUSATE SOD 100 MG CAP PO PRN (18:00)
[2022-01-09] MEDS ORDERED: ONDANSETRON HCL 4 MG/2 ML VIAL IV PRN (18:00)
[2022-01-09] MEDS ORDERED: levoFLOXacin 500MG 100 ML IV ONE (18:00)
[2022-01-09] MEDS ORDERED: MORPHINE SULFATE INJECTION 2 MG/ML SYRG IV PRN (18:00)
[2022-01-09] MEDS ORDERED: POTASSIUM EFFERVESENT TAB 25 MEQ PO ONE (18:00)
[2022-01-09] MEDS ORDERED: CARBIDOPA W LEVODOPA 25/250mg TABLET PO ONE (19:00)
[2022-01-09] MEDS: LORazepam 0.5 MG TAB PO PRN (19:31)
[2022-01-09 21:55] VITALS: BP 129/49
[2022-01-09] MEDS: SODIUM CHLOR 0.9% PF (SALINE LOCK) 10ML VIAL/SYR IV SCH (22:00)
[2022-01-09] MEDS: FINASTERIDE 5 MG TAB PO SCH (22:00)
[2022-01-09] MEDS: TAMSULOSIN HYDROCHLORIDE 0.4 MG CAP PO SCH (22:39)
[2022-01-09 23:29] VITALS: BP 138/79
[2022-01-10 05:00] VITALS: BP 131/49
[2022-01-10] MEDS: SODIUM CHLOR 0.9% PF (SALINE LOCK) 10ML VIAL/SYR IV SCH ×4 (05:03→22:24)
[2022-01-10] MEDS ORDERED: VANCOMYCIN HCL 1000 MG VL ONE (09:26)
[2022-01-10 09:27] VITALS: BP 149/69
[2022-01-10] MEDS ORDERED: TETRACAINE 1% INJ 2 ML VIAL IJ ONE (09:32)
[2022-01-10 09:33] VITALS: BP 120/54
[2022-01-10] MEDS ORDERED: MIDAZOLAM HCL 2MG/2ML 2ml VIAL (1mg/ml) ONE (09:34)
[2022-01-10] MEDS ORDERED: fentaNYL CITRATE 100 MCG/2 ML VL ONE (09:34)
[2022-01-10] MEDS: BUPIVACAINE 0.25% INJ 50ML VIAL ONE ×2 (10:06→12:03)
[2022-01-10] MEDS ORDERED: HYDROmorphone HCL 2 MG/ML VL/or syr IV PRN (10:30)
[2022-01-10] MEDS ORDERED: ONDANSETRON HCL 4 MG/2 ML VIAL IV PRN (10:30)
[2022-01-10] MEDS ORDERED: LACTATED RINGER'S 1,000 ML IV SCH (10:30)
[2022-01-10] MEDS: levoFLOXacin 250MG 50 ML IV SCH (11:05)
[2022-01-10 12:42] VITALS: BP 130/51
[2022-01-10] MEDS ORDERED: ePHEDrine SULFATE 50 MG/ML AMP IV ONE (13:10)
[2022-01-10] MEDS ORDERED: FINA5TAB4 PO ×2 (13:48)
[2022-01-10] MEDS ORDERED: TAMS0.4C36 PO ×2 (13:53)
[2022-01-10] MEDS ORDERED: PANT40TA2 PO ×2 (14:02)
[2022-01-10 16:34] VITALS: BP 136/49
[2022-01-10] MEDS: ENTACAPONE 200 MG TABLET PO SCH ×2 (18:41→22:00)
[2022-01-10] MEDS: ACETAMINOPHEN 325 MG TAB PO PRN (18:58)
[2022-01-10 22:00] VITALS: BP 99/59
[2022-01-10] MEDS: VANCOMYCIN 1GM/250ML 250 ML IV SCH (22:22)
[2022-01-10] MEDS: ATORVASTATIN 20 MG TAB PO SCH (22:23)
[2022-01-10] MEDS: FINASTERIDE 5 MG TAB PO SCH (22:23)
[2022-01-10] MEDS: TAMSULOSIN HYDROCHLORIDE 0.4 MG CAP PO SCH (22:23)
[2022-01-11] MEDS: ACETAMINOPHEN 325 MG TAB PO PRN ×2 (04:49→11:14)
[2022-01-11 04:57] LABS: Hemoglobin 9.1 g/dL (13.5-17.5)
[2022-01-11 04:58] LABS: Hematocrit 25.3 % (41.0-53.0)
[2022-01-11 05:00] VITALS: BP 126/57
[2022-01-11 05:16] LABS: BUN/Creatinine Ratio 17.1; Calcium 8.5 mg/dL (8.5-10.1); Potassium 3.8 mmol/L (3.5-5.1)
[2022-01-11] MEDS: CARBIDOPA W LEVODOPA 25/100mg TABLET PO SCH ×5 (05:49→23:27)
[2022-01-11] MEDS: SODIUM CHLOR 0.9% PF (SALINE LOCK) 10ML VIAL/SYR IV SCH ×3 (05:50→23:29)
[2022-01-11] MEDS: ENTACAPONE 200 MG TABLET PO SCH ×5 (07:17→23:28)
[2022-01-11 09:00] VITALS: BP 108/55
[2022-01-11] MEDS: ENOXAPARIN SOD 40 MG/0.4 ML SYRINGE SC SCH (09:46)
[2022-01-11] MEDS: PANTOPRAZOLE 40 MG TAB PO SCH (09:47)
[2022-01-11] MEDS: VANCOMYCIN 1GM/250ML 250 ML IV SCH (09:48)
[2022-01-11] MEDS ORDERED: FINASTERIDE 5 MG TAB PO SCH (10:00)
[2022-01-11] MEDS ORDERED: TAMSULOSIN HYDROCHLORIDE 0.4 MG CAP PO SCH (10:00)
[2022-01-11] MEDS ORDERED: KETOROLAC TROMETH 30 MG/ML 1ML VIAL IV PRN (11:15)
[2022-01-11 13:00] VITALS: BP 114/51
[2022-01-11] MEDS: BICALUTAMIDE 50 MG PO SCH (14:03)
[2022-01-11] MEDS: RASAGILINE MESYLATE 1 MG PO SCH (14:03)
[2022-01-11 17:00] VITALS: BP 102/43
[2022-01-11] MEDS: levoFLOXacin 250MG 50 ML IV SCH (18:12)
[2022-01-11 22:00] VITALS: BP 116/55
[2022-01-11] MEDS: TAMSULOSIN HYDROCHLORIDE 0.4 MG CAP PO SCH (23:27)
[2022-01-11] MEDS: FINASTERIDE 5 MG TAB PO SCH (23:28)
[2022-01-11] MEDS: ATORVASTATIN 20 MG TAB PO SCH (23:28)
[2022-01-12 05:00] VITALS: BP 120/60
[2022-01-12 05:10] LABS: Hematocrit 24.6 % (41.0-53.0); Hemoglobin 8.6 g/dL (13.5-17.5)
[2022-01-12] MEDS: ENTACAPONE 200 MG TABLET PO SCH ×5 (06:30→22:49)
[2022-01-12] MEDS: SODIUM CHLOR 0.9% PF (SALINE LOCK) 10ML VIAL/SYR IV SCH ×3 (06:30→22:50)
[2022-01-12] MEDS: CARBIDOPA W LEVODOPA 25/100mg TABLET PO SCH ×5 (06:31→22:48)
[2022-01-12 08:56] VITALS: BP 123/54
[2022-01-12] MEDS: PANTOPRAZOLE 40 MG TAB PO SCH (09:40)
[2022-01-12] MEDS: ENOXAPARIN SOD 40 MG/0.4 ML SYRINGE SC SCH (09:42)
[2022-01-12] MEDS: RASAGILINE MESYLATE 1 MG PO SCH (09:43)
[2022-01-12] MEDS: BICALUTAMIDE 50 MG PO SCH (09:44)
[2022-01-12] MEDS: levoFLOXacin 250MG 50 ML IV SCH (10:01)
[2022-01-12 12:34] VITALS: BP 119/50
[2022-01-12] MEDS: ACETAMINOPHEN 325 MG TAB PO PRN (14:37)
[2022-01-12] MEDS: KETOROLAC TROMETH 30 MG/ML 1ML VIAL IV PRN (15:54)
[2022-01-12 16:45] VITALS: BP 120/53
[2022-01-12 22:00] VITALS: BP 121/56
[2022-01-12] MEDS: ATORVASTATIN 20 MG TAB PO SCH (22:48)
[2022-01-12] MEDS: TAMSULOSIN HYDROCHLORIDE 0.4 MG CAP PO SCH (22:48)
[2022-01-12] MEDS: FINASTERIDE 5 MG TAB PO SCH (22:49)
[2022-01-13] MEDS: KETOROLAC TROMETH 30 MG/ML 1ML VIAL IV PRN (03:12)
[2022-01-13 05:00] VITALS: BP 150/88
[2022-01-13] MEDS: LORazepam 0.5 MG TAB PO PRN (05:17)
[2022-01-13] MEDS: CARBIDOPA W LEVODOPA 25/100mg TABLET PO SCH ×5 (06:22→23:00)
[2022-01-13] MEDS: ENTACAPONE 200 MG TABLET PO SCH ×5 (06:22→23:00)
[2022-01-13] MEDS: SODIUM CHLOR 0.9% PF (SALINE LOCK) 10ML VIAL/SYR IV SCH ×3 (06:22→23:00)
[2022-01-13] MEDS ORDERED: HALOPERIDOL LACTATE 5 MG/ML INJ VIAL IV PRN ×2 (07:15)
[2022-01-13 07:57] LABS: Hematocrit 23.6 % (41.0-53.0); Hemoglobin 8.5 g/dL (13.5-17.5)
[2022-01-13 09:00] VITALS: BP 157/82
[2022-01-13] MEDS: levoFLOXacin 250MG 50 ML IV SCH (11:07)
[2022-01-13] MEDS: PANTOPRAZOLE 40 MG TAB PO SCH (11:07)
[2022-01-13] MEDS: RASAGILINE MESYLATE 1 MG PO SCH (11:07)
[2022-01-13] MEDS: BICALUTAMIDE 50 MG PO SCH (11:07)
[2022-01-13] MEDS: ENOXAPARIN SOD 40 MG/0.4 ML SYRINGE SC SCH (11:08)
[2022-01-13 13:00] VITALS: BP 143/72
[2022-01-13 16:38] VITALS: BP 137/65
[2022-01-13 22:00] VITALS: BP 143/69
[2022-01-13] MEDS: ATORVASTATIN 20 MG TAB PO SCH (23:01)
[2022-01-13] MEDS: TAMSULOSIN HYDROCHLORIDE 0.4 MG CAP PO SCH (23:01)
[2022-01-13] MEDS: FINASTERIDE 5 MG TAB PO SCH (23:02)
[2022-01-14] MEDS: SODIUM CHLOR 0.9% PF (SALINE LOCK) 10ML VIAL/SYR IV SCH ×3 (06:36→20:48)
[2022-01-14] MEDS: ENTACAPONE 200 MG TABLET PO SCH ×5 (06:37→20:47)
[2022-01-14] MEDS: CARBIDOPA W LEVODOPA 25/100mg TABLET PO SCH ×5 (06:37→20:45)
[2022-01-14 08:30] VITALS: BP 146/68
[2022-01-14 09:00] VITALS: BP 146/68
[2022-01-14 10:06] LABS: Basophils # (auto) 0 10 ^3/uL (0-0.2); Basophils % (auto) 0.9 % (0.0-2.0); Eosinophils # (auto) 0.1 10 ^3/uL (0-0.8); Eosinophils % (auto) 1.3 % (0.0-7.0); Hematocrit 25.9 % (41.0-53.0); Hemoglobin 9.1 g/dL (13.5-17.5); Lymphocytes # (auto) 0.5 10 ^3/uL (0.4-5.4); Lymphocytes % (auto) 10.2 % (10.0-50.0); Mean Corpuscular Hemoglobin 33.6 pg (28.0-32.0); Mean Corpuscular Hgb Conc. 35.3 g/dL (32.0-36.0); Mean Corpuscular Volume 95.1 fL (80.0-100.0); Monocytes # (auto) 0.5 10 ^3/uL (0-1.3); Monocytes % (auto) 9.5 % (0.0-12.0); Neutrophils # (auto) 3.9 10 ^3/uL (1.6-8.6); Neutrophils % (auto) 78.1 % (37.0-80.0); Red Blood Cells 2.72 10^6/uL (4.5-5.90); Red Cell Distribution Width 13.2 % (11.8-14.3)
[2022-01-14 10:30] LABS: BUN/Creatinine Ratio 20.6; Calcium 8.7 mg/dL (8.5-10.1); Potassium 3.6 mmol/L (3.5-5.1)
[2022-01-14] MEDS: BICALUTAMIDE 50 MG PO SCH (10:48)
[2022-01-14] MEDS: RASAGILINE MESYLATE 1 MG PO SCH (10:49)
[2022-01-14] MEDS: levoFLOXacin 250 MG TAB PO SCH (10:49)
[2022-01-14] MEDS: PANTOPRAZOLE 40 MG TAB PO SCH (10:50)
[2022-01-14] MEDS: ENOXAPARIN SOD 40 MG/0.4 ML SYRINGE SC SCH (10:50)
[2022-01-14 13:00] VITALS: BP 100/53
[2022-01-14] MEDS: TAMSULOSIN HYDROCHLORIDE 0.4 MG CAP PO SCH (20:43)
[2022-01-14] MEDS: ATORVASTATIN 20 MG TAB PO SCH (20:45)
[2022-01-14] MEDS: FINASTERIDE 5 MG TAB PO SCH (20:45)
[2022-01-14 20:58] VITALS: BP 112/58
[2022-01-15 03:55] VITALS: BP 121/62
[2022-01-15] MEDS: SODIUM CHLOR 0.9% PF (SALINE LOCK) 10ML VIAL/SYR IV SCH ×3 (06:10→21:30)
[2022-01-15] MEDS: ENTACAPONE 200 MG TABLET PO SCH ×5 (06:13→21:27)
[2022-01-15] MEDS: CARBIDOPA W LEVODOPA 25/100mg TABLET PO SCH ×5 (06:21→21:25)
[2022-01-15 08:00] VITALS: BP 112/58
[2022-01-15] MEDS: levoFLOXacin 250 MG TAB PO SCH (10:30)
[2022-01-15] MEDS: BICALUTAMIDE 50 MG PO SCH (10:30)
[2022-01-15] MEDS: ENOXAPARIN SOD 40 MG/0.4 ML SYRINGE SC SCH (10:31)
[2022-01-15] MEDS: PANTOPRAZOLE 40 MG TAB PO SCH (10:31)
[2022-01-15] MEDS: RASAGILINE MESYLATE 1 MG PO SCH (10:32)
[2022-01-15 12:51] VITALS: BP 107/58
[2022-01-15] MEDS: KETOROLAC TROMETH 30 MG/ML 1ML VIAL IV PRN (16:02)
[2022-01-15 17:18] VITALS: BP 115/56
[2022-01-15 20:00] VITALS: BP 109/61
[2022-01-15] MEDS: TAMSULOSIN HYDROCHLORIDE 0.4 MG CAP PO SCH (21:25)
[2022-01-15] MEDS: ATORVASTATIN 20 MG TAB PO SCH (21:26)
[2022-01-15] MEDS: FINASTERIDE 5 MG TAB PO SCH (21:26)
[2022-01-15 22:00] VITALS: BP 130/60
[2022-01-16] VITALS (8 sets, daily range): BP systolic 101–145; BP diastolic 35–83
[2022-01-16] MEDS: ENTACAPONE 200 MG TABLET PO SCH ×5 (06:20→21:48)
[2022-01-16] MEDS: SODIUM CHLOR 0.9% PF (SALINE LOCK) 10ML VIAL/SYR IV SCH ×3 (06:20→21:48)
[2022-01-16] MEDS: CARBIDOPA W LEVODOPA 25/100mg TABLET PO SCH ×5 (06:21→21:48)
[2022-01-16] MEDS: BICALUTAMIDE 50 MG PO SCH (10:17)
[2022-01-16] MEDS: RASAGILINE MESYLATE 1 MG PO SCH (10:18)
[2022-01-16] MEDS: PANTOPRAZOLE 40 MG TAB PO SCH (10:18)
[2022-01-16] MEDS: levoFLOXacin 250 MG TAB PO SCH (10:18)
[2022-01-16] MEDS: ENOXAPARIN SOD 40 MG/0.4 ML SYRINGE SC SCH (10:18)
[2022-01-16] MEDS: TAMSULOSIN HYDROCHLORIDE 0.4 MG CAP PO SCH (21:48)
[2022-01-16] MEDS: FINASTERIDE 5 MG TAB PO SCH (21:48)
[2022-01-16] MEDS: ATORVASTATIN 20 MG TAB PO SCH (21:48)
[2022-01-17 05:00] VITALS: BP 120/55
[2022-01-17] MEDS: SODIUM CHLOR 0.9% PF (SALINE LOCK) 10ML VIAL/SYR IV SCH ×3 (06:15→22:14)
[2022-01-17] MEDS: ENTACAPONE 200 MG TABLET PO SCH ×5 (06:15→22:13)
[2022-01-17] MEDS: CARBIDOPA W LEVODOPA 25/100mg TABLET PO SCH ×5 (06:15→22:14)
[2022-01-17 09:00] VITALS: BP 127/61
[2022-01-17] MEDS: ENOXAPARIN SOD 40 MG/0.4 ML SYRINGE SC SCH (10:11)
[2022-01-17] MEDS: PANTOPRAZOLE 40 MG TAB PO SCH (10:11)
[2022-01-17] MEDS: RASAGILINE MESYLATE 1 MG PO SCH (10:11)
[2022-01-17] MEDS: BICALUTAMIDE 50 MG PO SCH (10:11)
[2022-01-17] MEDS: levoFLOXacin 250 MG TAB PO SCH (10:11)
[2022-01-17] MEDS: Ensure HIGH Protein Chocolate 8oz Bottle PO SCH ×2 (15:08→18:24)
[2022-01-17 17:00] VITALS: BP 130/69
[2022-01-17 22:00] VITALS: BP 96/54
[2022-01-17] MEDS: ATORVASTATIN 20 MG TAB PO SCH (22:13)
[2022-01-17] MEDS: TAMSULOSIN HYDROCHLORIDE 0.4 MG CAP PO SCH (22:13)
[2022-01-17] MEDS: FINASTERIDE 5 MG TAB PO SCH (22:14)
[2022-01-18 04:58] VITALS: BP 128/55
[2022-01-18] MEDS: ENTACAPONE 200 MG TABLET PO SCH ×5 (05:45→21:49)
[2022-01-18] MEDS: SODIUM CHLOR 0.9% PF (SALINE LOCK) 10ML VIAL/SYR IV SCH ×3 (05:45→22:00)
[2022-01-18] MEDS: CARBIDOPA W LEVODOPA 25/100mg TABLET PO SCH ×5 (05:45→21:49)
[2022-01-18 08:00] VITALS: BP 94/52
[2022-01-18] MEDS: Ensure HIGH Protein Chocolate 8oz Bottle PO SCH ×3 (08:05→18:25)
[2022-01-18 08:06] LABS: Basophils # (auto) 0 10 ^3/uL (0-0.2); Basophils % (auto) 0.4 % (0.0-2.0); Eosinophils # (auto) 0.1 10 ^3/uL (0-0.8); Eosinophils % (auto) 1.6 % (0.0-7.0); Hematocrit 27.2 % (41.0-53.0); Hemoglobin 9.6 g/dL (13.5-17.5); Lymphocytes % (auto) 13.3 % (10.0-50.0); Mean Corpuscular Hemoglobin 33.5 pg (28.0-32.0); Mean Corpuscular Hgb Conc. 35.1 g/dL (32.0-36.0); Mean Corpuscular Volume 95.3 fL (80.0-100.0); Monocytes # (auto) 0.7 10 ^3/uL (0-1.3); Neutrophils # (auto) 5.7 10 ^3/uL (1.6-8.6); Neutrophils % (auto) 75.7 % (37.0-80.0); Red Blood Cells 2.86 10^6/uL (4.5-5.90); Red Cell Distribution Width 13.4 % (11.8-14.3); White Blood Cell 7.5 10^3/uL (4.4-10.8)
[2022-01-18 08:28] LABS: Calcium 9.1 mg/dL (8.5-10.1); Potassium 3.7 mmol/L (3.5-5.1)
[2022-01-18 08:38] LABS: BUN/Creatinine Ratio 24.1
[2022-01-18] MEDS: PANTOPRAZOLE 40 MG TAB PO SCH (09:33)
[2022-01-18] MEDS: levoFLOXacin 250 MG TAB PO SCH (09:33)
[2022-01-18] MEDS: RASAGILINE MESYLATE 1 MG PO SCH (09:34)
[2022-01-18] MEDS: ENOXAPARIN SOD 40 MG/0.4 ML SYRINGE SC SCH (09:34)
[2022-01-18 13:00] VITALS: BP 112/70
[2022-01-18] MEDS ORDERED: APIX2.5T PO ×2 (14:46)
[2022-01-18 17:00] VITALS: BP 123/84
[2022-01-18] MEDS: FINASTERIDE 5 MG TAB PO SCH (21:49)
[2022-01-18] MEDS: TAMSULOSIN HYDROCHLORIDE 0.4 MG CAP PO SCH (21:50)
[2022-01-18] MEDS: ATORVASTATIN 20 MG TAB PO SCH (21:50)
[2022-01-18 22:13] VITALS: BP 106/63
[2022-01-19 05:20] VITALS: BP 115/54
[2022-01-19] MEDS: CARBIDOPA W LEVODOPA 25/100mg TABLET PO SCH ×3 (05:31→14:14)
[2022-01-19] MEDS: ENTACAPONE 200 MG TABLET PO SCH ×3 (05:33→14:14)
[2022-01-19] MEDS: SODIUM CHLOR 0.9% PF (SALINE LOCK) 10ML VIAL/SYR IV SCH ×2 (05:40→15:00)
[2022-01-19 09:00] VITALS: BP 103/53
[2022-01-19] MEDS: PANTOPRAZOLE 40 MG TAB PO SCH (11:17)
[2022-01-19] MEDS: levoFLOXacin 250 MG TAB PO SCH (11:17)
[2022-01-19] MEDS: RASAGILINE MESYLATE 1 MG PO SCH (11:18)
[2022-01-19] MEDS: ENOXAPARIN SOD 40 MG/0.4 ML SYRINGE SC SCH (11:18)
[2022-01-19] MEDS: Ensure HIGH Protein Chocolate 8oz Bottle PO SCH (12:16)
[2022-01-19 13:00] VITALS: BP 104/54
== END 2022-01-19 16:40 | disposition home health service (06) | DRG 481 ==
LOC: EDBD 13:19 → ER 13:19 → TELE 17:48 → TELE-CENTR 20:35 → CENTRAL 01-14 22:45
PROVIDERS: ADMIT Internal Medicine; ATTEND Internal Medicine
PROC: BQ111ZZ Fluoroscopy of Left Hip using Low Osmolar Contrast (ICD-10-PCS; 2022-01-10)
PROC: 0QS734Z Reposition Left Upper Femur with Internal Fixation Device, Percutaneous Approach (ICD-10-PCS; principal; 2022-01-10 09:35)
PROC: 05HC33Z Insertion of Infusion Device into Left Basilic Vein, Percutaneous Approach (ICD-10-PCS; 2022-01-11)
PROC: B54NZZA Ultrasonography of Left Upper Extremity Veins, Guidance (ICD-10-PCS; 2022-01-11)
DX: S72.145A Nondisplaced intertrochanteric fracture of left femur, initial encounter for closed fracture (principal); G93.40 Encephalopathy, unspecified; N39.0 Urinary tract infection, site not specified; I49.5 Sick sinus syndrome; I25.10 Atherosclerotic heart disease of native coronary artery without angina pectoris; Z20.822 Contact with and (suspected) exposure to COVID-19; K21.9 Gastro-esophageal reflux disease without esophagitis; I10 Essential (primary) hypertension; G20 Parkinson's disease; F17.210 Nicotine dependence, cigarettes, uncomplicated; W10.1XXA Fall (on)(from) sidewalk curb, initial encounter; D50.0 Iron deficiency anemia secondary to blood loss (chronic); E78.5 Hyperlipidemia, unspecified; Z79.01 Long term (current) use of anticoagulants; Z82.0 Family history of epilepsy and other diseases of the nervous system; Z85.46 Personal history of malignant neoplasm of prostate; Z87.442 Personal history of urinary calculi; Z95.0 Presence of cardiac pacemaker; Z88.5 Allergy status to narcotic agent; Z88.0 Allergy status to penicillin; Z91.81 History of falling; Y93.89 Activity, other specified; Y92.89 Other specified places as the place of occurrence of the external cause; Y99.8 Other external cause status
CPT/HCPCS: 36415; 71045; 72192; 73502; 76000; 80048; 80053; 81001; 85014; 85018; 85025; 85610; 85730; 86850; 86900; 86901; 86920; 93005; 93306; 96365; 96375; 97110; 97116; 97530; C1713; G0378; J1885; J1956; J2250; J2405; J3490

== ENCOUNTER → 2022-01-24 | Outpatient (CLI) | payer OTHER, MEDICARE ==
[~2022-01-24] MED LIST changes: +APIX2.5T PO; +FINA5TAB4 PO; +PANT40TA2 PO; +TAMS0.4C36 PO
== END | disposition home or self-care (01) ==
LOC: LAB 16:28
PROVIDERS: ATTEND Student in an Organized Health Care Education/Training Program
DX: N39.0 Urinary tract infection, site not specified (principal)
CPT/HCPCS: 87086